=== PATIENT | female | born 1970 | race Caucasian/White ===

== ENCOUNTER → 2025-10-01 15:42 | Outpatient (REF) | payer OTHER, SELFPAY | LOC: WDC 15:42 | PROVIDERS: ATTENDING PHYSICIAN Physician Assistant | DX: Z12.31 Encounter for screening mammogram for malignant neoplasm of breast (principal) | CPT/HCPCS: 77063; 77067 ==

== ENCOUNTER → 2025-10-18 15:31 | Outpatient (REF) | payer OTHER, SELFPAY | LOC: HWRAD 15:31 | PROVIDERS: ATTENDING PHYSICIAN Physician Assistant; REFERRING PHYSICIAN Internal Medicine Endocrinology, Diabetes & Metabolism | DX: E05.00 Thyrotoxicosis with diffuse goiter without thyrotoxic crisis or storm (principal); E04.1 Nontoxic single thyroid nodule | CPT/HCPCS: 76536 ==